=== PATIENT | female | born 1975 | race Caucasian/White ===

== ENCOUNTER 2017-05-07 16:01 | Emergency (ER) | payer MEDICAID ==
[~2017-05-07] VITALS: Ht 162.6 cm; Wt 82.7 kg
[2017-05-07] MEDS ORDERED: HYDROCODONE/ACETAMINOPHEN 5-325 MG TABLET PO ONE (17:15)
[2017-05-07 18:49] VITALS: BP 126/81
== END 2017-05-07 19:00 | disposition home or self-care (01) ==
LOC: EMS 16:02
DX: K42.9 Umbilical hernia without obstruction or gangrene (principal); N60.12 Diffuse cystic mastopathy of left breast; N60.11 Diffuse cystic mastopathy of right breast; K21.9 Gastro-esophageal reflux disease without esophagitis; Z88.0 Allergy status to penicillin
CPT/HCPCS: 74176; 81025; 99284

== ENCOUNTER 2022-12-03 14:10 | Emergency (ER) | payer MEDICAID ==
[~2022-12-03] VITALS: Ht 165.1 cm; Wt 90.5 kg
[2022-12-03 15:51] LABS: BASOPHILS % (AUTO) 1.1 % (0.0-2.0); EOSINOPHILS % (AUTO) 2.3 % (1.0-6.0); HEMATOCRIT 38.3 % (36-46); HEMOGLOBIN 12.9 g/dL (12.0-16.0); LYMPHOCYTES # (AUTO) 2.5 K/uL (1.0-4.8); LYMPHOCYTES % (AUTO) 30.5 % (22.0-44.0); MEAN CORPUSCULAR HEMOGLOBIN 29.3 pg (26.0-34.0); MEAN CORPUSCULAR HGB CONC 33.6 G/dL (31.0-37.0); MEAN CORPUSCULAR VOLUME 87 fL (80-100); MONOCYTES # (AUTO) 0.5 K/uL (0.1-1.0); NEUTROPHILS # (AUTO) 4.9 K/uL (1.8-7.7); NEUTROPHILS % (AUTO) 60.1 % (40.0-70.0); PLATELET COUNT (AUTO) 225 K/uL (150-450); RED CELL DISTRIBUTION WIDTH 12.7 % (11.5-14.5)
[2022-12-03 16:02] LABS: INR 0.9 (0.9-1.1); PROTHROMBIN TIME 9.9 SEC (9.4-11.6)
[2022-12-03 16:09] LABS: ANION GAP 7 mmol/L (8-16); CALCIUM, TOTAL 9.1 mg/dL (8.8-10.5); CARBON DIOXIDE 27 mmol/L (22-29); CHLORIDE 104 mmol/L (98-107); CREATININE 0.64 mg/dL (0.60-1.30); GLOMERULAR FILTR. RATE CALC > 60 mL/min (>60); GLUCOSE,RANDOM 93 mg/dL (70-110); POTASSIUM 4.4 mmol/L (3.5-5.1); SODIUM SERUM 138 mmol/L (136-145); UREA NITROGEN, BLOOD 15 mg/dL (7-18)
[2022-12-03 16:17] LABS: B-TYPE NATRIURETIC PEPTIDE 8 pg/mL (0-100)
[2022-12-03 16:36] LABS: ALANINE AMINOTRANSFERASE 48 U/L (12-78); ALKALINE PHOSPHATASE 109 U/L (46-116); ASPARTATE AMINOTRANSFERASE 27 U/L (15-37); BILIRUBIN,TOTAL 0.3 mg/dL (0.1-1.0); CREATINE KINASE, TOTAL ONLY 99 U/L (26-192); TOTAL PROTEIN, SERUM 8.1 g/dL (6.4-8.2)
[2022-12-03] MEDS ORDERED: IOHEXOL 350 MG/ML 100 ML VIAL ONE (19:05)
[2022-12-03] MEDS ORDERED: SODIUM CHLORIDE 0.9% 100 ML ONE (19:05)
[2022-12-03 20:08] LABS: APPEARANCE,URINE HAZY (CLEAR); BILIRUBIN,URINE NEGATIVE (NEGATIVE); GLUCOSE, URINE (UA) NEGATIVE (NEGATIVE); LEUKOCYTE ESTERASE ,URINE MODERATE (NEGATIVE); NITRATE,URINE POSITIVE (NEGATIVE); OCCULT BLOOD,URINE TRACE (NEGATIVE); PROTEIN,URINE NEGATIVE (NEGATIVE); SPECIFIC GRAVITIY, URINE 1.014 (1.003-1.030); UROBILINOGEN,URINE <=1.0 mg/dL (<=1.0)
[2022-12-03 20:26] LABS: SQUAMOUS EPITHELIAL CELL,UR Few /LPF (None Seen)
[2022-12-03 20:27] LABS: BACTERIA,URINE Moderate /HPF (None Seen); RBC,URINE 0-2 /HPF (0-2)
[2022-12-03] MEDS ORDERED: NITR-75 PO (20:31)
[2022-12-03 20:56] VITALS: BP 126/69
== END 2022-12-03 21:06 | disposition home or self-care (01) ==
LOC: EMS 14:12
DX: M94.0 Chondrocostal junction syndrome [Tietze] (principal); R07.89 Other chest pain; Z98.890 Other specified postprocedural states; Z88.0 Allergy status to penicillin
CPT/HCPCS: 99285; 71275; 71045; 80053; 81001; 82550; 83880; 84484; 85025; 85379; 85610; 85730; 36415; 87086; 87186; 93005; Q9967; J7050